=== PATIENT | male | born 1960 | race Asian ===

== ENCOUNTER 2017-10-05 15:11 | Emergency (ER) | payer OTHER ==
[2017-10-05] MEDS: ALBUTEROL 0.083% (NEB) 2.5 MG/3 ML AMP HHN (16:34)
== END 2017-10-05 17:34 | disposition home or self-care (01) ==
LOC: FTE 15:11
DX: J06.9 Acute upper respiratory infection, unspecified (principal); E11.9 Type 2 diabetes mellitus without complications; F17.210 Nicotine dependence, cigarettes, uncomplicated; Z79.84 Long term (current) use of oral hypoglycemic drugs
CPT/HCPCS: 71045; 82962; 94664; 99284-25

== ENCOUNTER 2019-04-03 08:07 | Day surgery (SDC) | payer OTHER ==
[2019-04-03] MEDS ORDERED: FENTAnyl 50 MCG/ML VIAL (10:32)
[2019-04-03] MEDS ORDERED: MIDAZOLAM 1 MG/ML 2 ML INJ ×2 (10:32)
== END 2019-04-03 12:58 | disposition home or self-care (01) ==
LOC: GIL 08:07
DX: Z12.11 Encounter for screening for malignant neoplasm of colon (principal); D12.4 Benign neoplasm of descending colon; D12.8 Benign neoplasm of rectum; E11.9 Type 2 diabetes mellitus without complications
CPT/HCPCS: 45380; 82962; 88305

== ENCOUNTER 2019-05-04 21:12 | Emergency (ER) | payer OTHER | END 2019-05-04 23:55 | disposition home or self-care (01) | LOC: FTE 23:55 | DX: S09.90XA Unspecified injury of head, initial encounter (principal); F17.210 Nicotine dependence, cigarettes, uncomplicated; E11.9 Type 2 diabetes mellitus without complications; W22.8XXA Striking against or struck by other objects, initial encounter; Y92.9 Unspecified place or not applicable; Z79.82 Long term (current) use of aspirin; Z79.84 Long term (current) use of oral hypoglycemic drugs | CPT/HCPCS: 99283; Z7502 ==